=== PATIENT | male | born 1995 | race Caucasian/White ===

== ENCOUNTER 2017-06-26 01:08 | Emergency (ER) | payer SELFPAY ==
[2017-06-26 01:52] LABS: Basophils # (Auto) 0.1 K/mm3 (0.0-0.1); Basophils % (Auto) 1.5 % (0.0-1.8); Eosinophils # (Auto) 0.8 K/mm3 (0.0-0.4); Eosinophils % (Auto) 7.8 % (0.0-4.3); Lymphocytes # (Auto) 2.4 K/mm3 (1.2-5.4); Lymphocytes % (Auto) 24.4 % (13.4-35.0); Mean Corpuscular HGB Conc 36 % (32-34); Mean Corpuscular Hemoglobin 30 pg (28-32); Mean Corpuscular Volume 84 fl (84-94); Monocytes # (Auto) 0.5 K/mm3 (0.0-0.8); Monocytes % (Auto) 5.4 % (0.0-7.3); Platelet Count 319 K/mm3 (140-440); Red Cell Distribution Width 12.9 % (13.2-15.2)
[2017-06-26 01:55] LABS: Hematocrit 42.2 % (35.5-45.6); Hemoglobin 15.1 gm/dl (11.8-15.2)
[2017-06-26 02:08] LABS: Alanine Aminotransferase 43 units/L (7-56); Albumin 4.1 g/dL (3.9-5); BUN/Creatinine Ratio 10; Blood Urea Nitrogen 8 mg/dL (9-20); Calcium 8.8 mg/dL (8.4-10.2); Hemolysis Index 20
[2017-06-26 04:01] LABS: Bilirubin,Urine NEG (Negative); Blood,Urine NEG (Negative); Color,Urine Yellow (Yellow); Protein,Urine <15 mg/dL mg/dL (Negative); Urobilinogen,Urine < 2.0 mg/dL (<2.0)
[2017-06-26 04:32] VITALS: BP 115/67
[2017-06-26] MEDS ORDERED: NORCO 5/325 PO ONE (04:39)
--- NOTE | 2017-06-26 05:20 | XRay Report ---
FINAL REPORT PROCEDURE: XR ABD SERIES W CXR 1V TECHNIQUE: Abdominal series complete, including supine and upright AP views of the abdomen and frontal chest. HISTORY: RIGHT LOWER CHEST PAIN COMPARISON: No prior studies are available for comparison. FINDINGS: Heart: Normal. Mediastinum/Vessels: Normal. Lungs/Pleural space: Normal. Bowel gas pattern: Nonobstructive. Masses or calcifications: There has been previous cholecystectomy. Bony structures: No acute osseous abnormality. Other: No free intraperitoneal air. IMPRESSION: There is no evidence of an acute process..
--- NOTE | 2017-06-26 06:17 | Emergency Department Report ---
ED Abdominal Pain HPI - General Chief Complaint: Abdominal Pain Stated Complaint: FLANK PAIN Time Seen by Provider: 06/26/17 04:30 Source: patient Mode of arrival: Ambulatory Limitations: No Limitations - History of Present Illness Initial Comments: Patient is a 21-year-old male male who is is complaining of some right upper flank pain. Patient states he works in [employer] and states it hurts to move he doesn't remember any one emesis that this started where he may have hurt himself. Patient states that the pain as a 4 out of 10 in severity as aching sharp pain is sometimes with movement catches him. Patient denies any nausea vomiting diarrhea or cough. Patient does state that when he takes deep breath sometimes he feels a popping sensation on the right side. Severity scale (0 -10): 7 - Related Data Previous Rx's Medication Instructions Recorded Last Taken Type HYDROcodone/APAP 5-325 [Hines 1 each PO Q6HR PRN #20 tablet 01/13/17 Unknown Rx 5-325 mg TAB] Docusate Sodium [Colace] 100 mg PO BID #30 capsule 06/26/17 Unknown Rx methOCARBAMOL [Robaxin TAB] 500 mg PO Q6H PRN #14 tablet 06/26/17 Unknown Rx traMADol [Ultram] 50 mg PO Q6HR PRN #12 tablet 06/26/17 Unknown Rx Allergies Allergy/AdvReac Type Severity Reaction Status Date / Time No Known Allergies Allergy Unverified 01/03/15 05:14 ED Review of Systems ROS: Stated complaint: FLANK PAIN Other details as noted in HPI Comment: All other systems reviewed and negative ED Past Medical Hx - Past Medical History Previous Medical History?: Yes Hx Hypertension: No Hx Seizures: No Hx Asthma: Yes (have not used inhaler in 1 year) - Surgical History Past Surgical History?: Yes Hx Appendectomy: Yes - Social History Smoking Status: Current Every Day Smoker Substance Use Type: Marijuana - Medications Home Medications: Home Medications Medication Instructions Recorded Confirmed Last Taken Type HYDROcodone/APAP 5-325 [Hines 1 each PO Q6HR PRN #20 tablet 01/13/17 Unknown Rx 5-325 mg TAB] Docusate Sodium [Colace] 100 mg PO BID #30 capsule 06/26/17 Unknown Rx methOCARBAMOL [Robaxin TAB] 500 mg PO Q6H PRN #14 tablet 06/26/17 Unknown Rx traMADol [Ultram] 50 mg PO Q6HR PRN #12 tablet 06/26/17 Unknown Rx ED Physical Exam - General Limitations: No Limitations General appearance: alert, in no apparent distress - Head Head exam: Present: atraumatic, normocephalic - Eye Eye exam: Present: normal appearance - ENT ENT exam: Present: mucous membranes moist - Neck Neck exam: Present: normal inspection - Respiratory Respiratory exam: Present: normal lung sounds bilaterally. Absent: respiratory distress - Cardiovascular Cardiovascular Exam: Present: regular rate, normal rhythm. Absent: systolic murmur, diastolic murmur, rubs, gallop - GI/Abdominal GI/Abdominal exam: Present: soft, normal bowel sounds - Rectal Rectal exam: Present: deferred - Extremities Exam Extremities exam: Present: normal inspection - Back Exam Back exam: Present: normal inspection - Neurological Exam Neurological exam: Present: alert, oriented X3 - Psychiatric Psychiatric exam: Present: normal affect, normal mood - Skin Skin exam: Present: warm, dry, intact, normal color. Absent: rash ED Course Vital Signs 06/26/17 06/26/17 01:16 04:32 Temperature 98.1 F 98.0 F Pulse Rate 84 75 Respiratory 16 19 Rate Blood Pressure 122/71 Blood Pressure 115/67 [Left] O2 Sat by Pulse 97 100 Oximetry ED Medical Decision Making - Lab Data Result diagrams: 06/26/17 01:31 06/26/17 01:31 - Radiology Data Radiology results: image reviewed (patient has mild obstructive bowel gas pattern normal chest x-ray. There is a large amount of residual school stool present.) - Medical Decision Making Patient most likely has muscular skeletal pain. Patient also shows evidence of constipation patient states he's had is having bowel movements have added stool softener for the patient. Patient be started on pain meds and a muscle relaxant as well. Critical care attestation.: If time is entered above; I have spent that time in minutes in the direct care of this critically ill patient, excluding procedure time. ED Disposition Clinical Impression: Chest wall pain, Constipation Disposition: DC-01 TO HOME OR SELFCARE Is pt being admited?: No Does the pt Need Aspirin: No Condition: Stable Instructions: Chest Pain (ED) Prescriptions: Docusate Sodium [Colace] 100 mg PO BID #30 capsule methOCARBAMOL [Robaxin TAB] 500 mg PO Q6H PRN #14 tablet PRN Reason: Pain traMADol [Ultram] 50 mg PO Q6HR PRN #12 tablet PRN Reason: Pain Referrals: DARIUS SCOTT MD [Primary Care Provider] - 3-5 Days
== END 2017-06-26 06:43 | disposition home or self-care (01) ==
LOC: ED 01:08
DX: R10.11 Right upper quadrant pain (principal); R07.89 Other chest pain; K59.00 Constipation, unspecified; J45.909 Unspecified asthma, uncomplicated; F17.200 Nicotine dependence, unspecified, uncomplicated; F12.10 Cannabis abuse, uncomplicated; Z90.49 Acquired absence of other specified parts of digestive tract
CPT/HCPCS: 36415; 74022; 80053; 81001; 85025